=== PATIENT | female | born 1985 | race African-American/Black ===

== ENCOUNTER 2017-03-01 10:49 | Emergency (ER) | payer OTHER ==
[~2017-03-01] VITALS: Ht 157.5 cm; Wt 56.7 kg
[2017-03-01] MEDS ORDERED: IBUPROFEN 800800 M1 PO (10:59)
[2017-03-01 11:38] LABS: URINE BILIRUBIN NEGATIVE (Negative); URINE BLOOD 3+ (Negative); URINE COLOR YELLOW; URINE GLUCOSE-RANDOM* NEGATIVE (Negative); URINE KETONES NEGATIVE (Negative); URINE LEUKOCYTES-REFLEX NEGATIVE (Negative); URINE PROTEIN (DIPSTICK) NEGATIVE (Negative)
[2017-03-01 11:57] LABS: CASTS None Seen /LPF (None Seen); CRYSTALS None Seen /LPF (None Seen); SQUAMOUS 4-10 Moderate /LPF (0-3)
[2017-03-01 11:58] LABS: URINE WBC-REFLEX 0-5 Rare /HPF (0-5)
[2017-03-01 12:30] LABS: HEMATOCRIT 32.7 % (37.0-47.0); HEMOGLOBIN 10.2 gm/dL (12.0-15.0); MCH 24.1 pg (26.0-34.0); MCHC 31.1 g/dL (28.0-37.0); MCV 77.4 fL (80.0-100.0); RBC 4.22 mil/uL (4.20-5.00); RDW 19.1 % (10.5-14.5); WBC 8.6 thou/uL (4.0-11.0)
[2017-03-01 12:34] LABS: CALCIUM 9.2 mg/dL (8.5-10.1); CREATININE 0.9 mg/dL (0.6-1.0); POTASSIUM 3.8 mmol/L (3.5-5.1)
[2017-03-01 13:55] VITALS: BP 120/72
== END 2017-03-01 13:53 | disposition home or self-care (01) ==
LOC: ER 10:49
PROVIDERS: Emergency Medicine; Physician Assistant
DX: N93.8 Other specified abnormal uterine and vaginal bleeding (principal); R10.30 Lower abdominal pain, unspecified; F17.210 Nicotine dependence, cigarettes, uncomplicated; Z88.6 Allergy status to analgesic agent

== ENCOUNTER 2019-08-14 14:06 | Emergency (ER) | payer OTHER ==
[~2019-08-14] VITALS: Ht 162.6 cm; Wt 53.5 kg
[~2019-08-14 14:06] MED LIST: IBUPROFEN 800800 M1 PO
[2019-08-14 14:40] LABS: URINE BILIRUBIN NEGATIVE (Negative); URINE BLOOD 3+ (Negative); URINE CLARITY CLEAR; URINE COLOR YELLOW; URINE GLUCOSE-RANDOM* NEGATIVE (Negative); URINE KETONES NEGATIVE (Negative); URINE LEUKOCYTES-REFLEX NEGATIVE (Negative); URINE NITRITE-REFLEX NEGATIVE (Negative); URINE PROTEIN (DIPSTICK) NEGATIVE (Negative); URINE SPECIFIC GRAVITY >= 1.030 (1.005-1.035); URINE UROBILINOGEN 0.2 E.U./dl (0.2-1.0)
[2019-08-14 14:40] LABS: HEMATOCRIT 29.4 % (37.0-47.0); HEMOGLOBIN 8.6 gm/dL (12.0-15.0); MCH 20.5 pg (26.0-34.0); MCHC 29.4 g/dL (28.0-37.0); MCV 69.8 fL (80.0-100.0); PLATELET COUNT 274 thou/uL (150-400); RBC 4.22 mil/uL (4.20-5.00); RDW 20.1 % (10.5-14.5); WBC 11.1 thou/uL (4.0-11.0)
[2019-08-14 14:46] LABS: BACTERIA-REFLEX 1-9 Few /HPF (None Seen); CASTS None Seen /LPF (None Seen); CRYSTALS ND /LPF (None Seen); MUCUS 4-6 Moderate strn/LPF (None Seen); SQUAMOUS 0-3 Few /LPF (0-3); URINE RBC >20 Many /HPF (0-2); URINE WBC-REFLEX 0-5 Rare /HPF (0-5)
[2019-08-14 14:47] LABS: CALCIUM 8.7 mg/dL (8.5-10.1); CREATININE 0.8 mg/dL (0.6-1.0); POTASSIUM 3.4 mmol/L (3.5-5.1)
[2019-08-14 14:53] LABS: ALBUMIN 4.2 g/dL (3.4-5.0); TOTAL BILIRUBIN 0.3 mg/dL (<0.1-1.0)
[2019-08-14 15:23] LABS: ABSOLUTE NEUTROPHILS 8.4 thou/uL (1.4-8.2); ANISOCYTOSIS 2+; BURR CELLS 1+; MICROCYTES 1+
[2019-08-14] MEDS ORDERED: PROMS25 WY RECTAL (16:01)
[2019-08-14] MEDS ORDERED: ZOFRAN ODT4 MG PO (16:01)
[2019-08-14 16:30] VITALS: BP 120/84
== END 2019-08-14 16:30 | disposition home or self-care (01) ==
LOC: ER 14:06
PROVIDERS: Nurse Practitioner Family
DX: R11.2 Nausea with vomiting, unspecified (principal); R19.7 Diarrhea, unspecified; F17.210 Nicotine dependence, cigarettes, uncomplicated; Z88.6 Allergy status to analgesic agent

== ENCOUNTER 2019-10-11 07:07 | Emergency (ER) | payer OTHER ==
[~2019-10-11] VITALS: Ht 160 cm; Wt 54.4 kg
[~2019-10-11 07:07] MED LIST changes: +PROMS25 WY RECTAL; +ZOFRAN ODT4 MG PO
[2019-10-11] MEDS ORDERED: SLOW FE142 MG PO (07:23)
[2019-10-11 08:05] LABS: HEMATOCRIT 29.1 % (37.0-47.0); HEMOGLOBIN 8.8 gm/dL (12.0-15.0); MCHC 30.2 g/dL (28.0-37.0)
[2019-10-11 08:07] LABS: MCH 21.2 pg (26.0-34.0); MCV 70.4 fL (80.0-100.0); PLATELET COUNT 257 thou/uL (150-400); RBC 4.13 mil/uL (4.20-5.00); RDW 23.2 % (10.5-14.5); WBC 7.9 thou/uL (4.0-11.0)
[2019-10-11 08:20] LABS: CREATININE 0.7 mg/dL (0.6-1.0); POTASSIUM 3.6 mmol/L (3.5-5.1)
[2019-10-11 09:06] LABS: ABSOLUTE NEUTROPHILS 5.1 thou/uL (1.4-8.2)
[2019-10-11 09:08] LABS: ANISOCYTOSIS 2+; BURR CELLS FEW; HYPOCHROMASIA 2+; LARGE PLATELETS OCCASIONAL; POIKILOCYTOSIS 1+
[2019-10-11 09:20] VITALS: BP 109/67
== END 2019-10-11 09:28 | disposition home or self-care (01) ==
LOC: ER 07:07
PROVIDERS: Emergency Medicine
DX: K62.89 Other specified diseases of anus and rectum (principal); R19.7 Diarrhea, unspecified; F17.210 Nicotine dependence, cigarettes, uncomplicated; Z79.899 Other long term (current) drug therapy; Z88.6 Allergy status to analgesic agent